=== PATIENT | female | born 1995 | race Two or more races ===

== ENCOUNTER 2019-08-27 20:12 | Emergency (ER) | payer BC, OTHER ==
[~2019-08-27] VITALS: Ht 152.4 cm; Wt 79.4 kg
[2019-08-27 20:37] VITALS: BP 130/86
== END 2019-08-28 01:09 | disposition left against medical advice (07) ==
LOC: ER 20:15
DX: J02.9 Acute pharyngitis, unspecified (principal); Z53.21 Procedure and treatment not carried out due to patient leaving prior to being seen by health care provider